=== PATIENT | male | born 1990 | race Caucasian/White ===

== ENCOUNTER 2019-06-09 23:45 | Emergency (ER) | payer BC ==
[~2019-06-09] VITALS: Ht 188 cm; Wt 131.5 kg
[2019-06-10 00:13] VITALS: BP 152/81
--- NOTE | 2019-06-10 00:44 | NUR ---
BIBS. C/O PRODUCTIVE COUGH X 1 MONTH. VOICE HOARSNESS X 2 WEEKS.
== END 2019-06-10 00:51 | disposition home or self-care (01) ==
LOC: ER 23:47
DX: R05 Cough (principal); F10.10 Alcohol abuse, uncomplicated; F17.200 Nicotine dependence, unspecified, uncomplicated; Y90.9 Presence of alcohol in blood, level not specified; Z71.6 Tobacco abuse counseling